=== PATIENT | female | born 1990 | race Caucasian/White ===

== ENCOUNTER 2020-11-01 18:06 | Inpatient (IN) | payer BC ==
[~2020-11-01] VITALS: Ht 160 cm; Wt 90.3 kg
[2020-11-01] MEDS ORDERED: morphine 4 MG/ML inj SYRINge IV PRN (18:40)
[2020-11-01] MEDS ORDERED: normal saline 1000ML IV soln IVB ONE (18:40)
[2020-11-01] MEDS ORDERED: ketorolac tromethamine 15mg/ml inj. IV ONE (18:40)
[2020-11-01] MEDS ORDERED: ondansetron/PF 4mg/2ml inj IV ONE (18:40)
[2020-11-01 19:27] LABS: BASOPHILS % (AUTO) 0.2 % (0-1); EOSINOPHILS % (AUTO) 0.1 % (0-6); HEMATOCRIT 38.8 % (35.0-45.0); HEMOGLOBIN 12.7 g/dl (12.0-16.0); LYMPHOCYTES # (AUTO) 1.2 X10'3 (1.1-4.8); MEAN CORPUSCULAR HEMOGLOBIN 25.7 PG (27.0-31.0); MEAN CORPUSCULAR HGB CONC 32.8 g/dL (33.0-36.5); MEAN CORPUSCULAR VOLUME 78.4 FL (78-98); MEAN PLATELET VOLUME 8.2 FL (7.4-10.4); MONOCYTES # (AUTO) 0.9 X10'3 (0-0.9); MONOCYTES % (AUTO) 5.5 % (2-12); NEUTROPHILS # (AUTO) 14.5 X10'3 (1.8-7.7); NEUTROPHILS % (AUTO) 87.2 % (42-75); PLATELET COUNT 392 X10'3 (140-440); RED BLOOD COUNT 4.95 X10'6 (4.20-5.60); WHITE BLOOD COUNT 16.6 X10'3 (4.5-11.0)
[2020-11-01 19:43] LABS: ALANINE AMINOTRANSFERASE 276 U/L (12-78); ALBUMIN/GLOBULIN RATIO 1.1 (1.1-1.5); ALKALINE PHOSPHATASE 119 IU/L (46-116); ANION GAP 14 (8-16); ASPARTATE AMINO TRANSFERASE 515 U/L (10-37); BILIRUBIN,TOTAL 0.7 MG/DL (0.1-1.0); BLOOD UREA NITROGEN 12 MG/DL (7-18); BUN/CREATININE RATIO 17.6 (6.6-38.0); CALCIUM 9.7 MG/DL (8.5-10.1); CHLORIDE 104 MMOL/L (99-107); CREATININE 0.68 MG/DL (0.40-0.90); GLUCOSE 124 MG/DL (70-104); LIPASE 179 U/L (73-393); POTASSIUM 3.4 MMOL/L (3.5-5.1); SODIUM 140 MMOL/L (135-145); TOTAL CARBON DIOXIDE 22.4 MMOL/L (24-32); TOTAL PROTEIN 7.5 G/DL (6.4-8.2); eGFR > 90 ML/MIN
[2020-11-01] MEDS ORDERED: fentaNYL/PF 50MCG/1 ML 2ML syringe IV ONE (20:20)
[2020-11-01] MEDS ORDERED: piperacillin/tazo 3.375gm/50ml 50 ML IV ONE (20:55)
[2020-11-01] MEDS ORDERED: LEVO88CA4 PO (21:16)
[2020-11-01] MEDS ORDERED: TOPI50TA24 PO (21:16)
[2020-11-01] MEDS ORDERED: PANT40TA54 PO (21:17)
[2020-11-01] MEDS ORDERED: ALB0.5UD IH (21:17)
[2020-11-01] MEDS: normal saline 1000ml 1,000 ML IV SCH (21:45)
[2020-11-01] MEDS ORDERED: HYDROmorphone inj. 0.5 MG/0.5 ML DISP.SYRIN IV PRN (21:45)
[2020-11-01] MEDS ORDERED: potassium Cl 40MEQ/1/2NS 520ml 520 ML IV PRN ×2 (21:45)
[2020-11-01 22:58] LABS: CLARITY,URINE CLOUDY (Clear); COLOR,URINE YELLOW (Yellow); GLUCOSE, URINE NEGATIVE (Neg); KETONES,URINE NEGATIVE (Neg); LEUKOCYTE ESTERASE ,URINE NEGATIVE (Neg); NITRITES, URINE NEGATIVE (Neg); OCCULT BLOOD,URINE NEGATIVE (Neg); PROTEIN,URINE 30 mg/dl (Neg); UROBILINOGEN,URINE 0.2 E.U/dL (0.2-1.0)
[2020-11-01 22:59] LABS: URINE HCG NEGATIVE (NEG)
[2020-11-01 23:28] LABS: UA COLLECTION TYPE CLN CATCH MIDSTREAM
[2020-11-01 23:37] LABS: BACTERIA,URINE NONE SEEN /HPF (Neg); RBC,URINE NONE SEEN /HPF (0-2); SQUAMOUS EPITHELIAL CELL,UR FEW /LPF (FEW); WBC,URINE 0-4 /HPF (0-4)
[2020-11-01 23:38] LABS: AMORPHOUS PHOSPHATES 4+
[2020-11-02] VITALS (11 sets, daily range): BP systolic 106–125; BP diastolic 64–85
[2020-11-02] MEDS: piperacillin/tazo 3.375gm/50ml 50 ML IV SCH ×4 (00:30→23:57)
--- NOTE | 2020-11-02 06:24 | NUR ---
Problems reprioritized. Patient report given, questions answered & plan of care reviewed with SOM. Addendum: 11/02/20 at 0624 by Davin Pruett RN Amended: Links added.
[2020-11-02 06:45] LABS: BASOPHILS % (AUTO) 0.3 % (0-1); EOSINOPHILS % (AUTO) 0.1 % (0-6); HEMATOCRIT 34.2 % (35.0-45.0); HEMOGLOBIN 11.1 g/dl (12.0-16.0); LYMPHOCYTES # (AUTO) 1.9 X10'3 (1.1-4.8); LYMPHOCYTES % (AUTO) 19.4 % (21-51); MEAN CORPUSCULAR HEMOGLOBIN 25.8 PG (27.0-31.0); MEAN CORPUSCULAR HGB CONC 32.6 g/dL (33.0-36.5); MEAN PLATELET VOLUME 8.4 FL (7.4-10.4); MONOCYTES # (AUTO) 0.9 X10'3 (0-0.9); MONOCYTES % (AUTO) 9.4 % (2-12); NEUTROPHILS # (AUTO) 6.8 X10'3 (1.8-7.7); NEUTROPHILS % (AUTO) 70.8 % (42-75); PLATELET COUNT 337 X10'3 (140-440); RED BLOOD COUNT 4.33 X10'6 (4.20-5.60); RED CELL DISTRIBUTION WIDTH 17.8 % (11.5-14.5); WHITE BLOOD COUNT 9.7 X10'3 (4.5-11.0)
[2020-11-02 07:03] LABS: ALANINE AMINOTRANSFERASE 872 U/L (12-78); ALBUMIN 2.9 G/DL (3.4-5.0); ALKALINE PHOSPHATASE 110 IU/L (46-116); ANION GAP 10 (8-16); ASPARTATE AMINO TRANSFERASE 870 U/L (10-37); BLOOD UREA NITROGEN 9 MG/DL (7-18); BUN/CREATININE RATIO 15.3 (6.6-38.0); CALCIUM 8.1 MG/DL (8.5-10.1); CHLORIDE 111 MMOL/L (99-107); CREATININE 0.59 MG/DL (0.40-0.90); GLUCOSE 92 MG/DL (70-104); POTASSIUM 3.7 MMOL/L (3.5-5.1); SODIUM 144 MMOL/L (135-145); TOTAL PROTEIN 5.8 G/DL (6.4-8.2); eGFR > 90 ML/MIN
[2020-11-02] MEDS: K and/or MAG REPLACEMENT MC SCH ×2 (08:00→20:00)
[2020-11-02] MEDS ORDERED: levoFLOXACIN-Levaquin 500mg/D5 100 ML IV ONE (08:20)
[2020-11-02] MEDS ORDERED: MIDAZolam 1 MG/ML 5ML VIAL ONE (08:20)
[2020-11-02] MEDS ORDERED: fentaNYL/PF 50MCG/1 ML 2ML syringe ONE (08:20)
[2020-11-02] MEDS ORDERED: iohexol 300 MG/1 ML 50ml polymer ONE (08:21)
[2020-11-02] MEDS ORDERED: LIDOcaine Viscous 15ml cup ONE (08:21)
[2020-11-02] MEDS ORDERED: glucagon, human recombinant 1mg kit ONE (08:21)
[2020-11-02] MEDS: normal saline 1000ml 1,000 ML IV SCH ×3 (13:06→23:18)
[2020-11-02] MEDS ORDERED: morphine 2 MG/ML inj. syringe IV PRN (13:40)
--- NOTE | 2020-11-02 13:42 | NUR ---
Dr. Jamil was at bedside talked to the patient and .
--- NOTE | 2020-11-02 13:47 | NUR ---
Dr. Jamil called Dr. Rooney on the phone regarding this patient. Per Dr. Omero Rooney will do the surgery tomorrow and that patient will need to be NPO after midnight. Charge nurse Hellen flowers
[2020-11-02] MEDS: pantoprazole 40 MG vial IV SCH (13:51)
[2020-11-02] MEDS: ondansetron/PF 4mg/2ml inj IV PRN ×2 (13:53→20:21)
--- NOTE | 2020-11-02 15:01 | NUR ---
Paged Dr. Jamil PAGER ID: [phone] MESSAGE: Surgical Mckenzie FORD ext [phone]. RE: Viola Mejia. Patient still in pain 10/07 , Dilaudid was given <2hrs ago and Morphine 66 minutes ago as of this time. Do you want her to be on Toradol too?
--- NOTE | 2020-11-02 16:15 | NUR ---
Paged Dr. Jamil PAGER ID: [phone] MESSAGE: Surgical Mckenzie FORD ext [phone]. RE Viola Mejia. Follow up page. Patient is crying in abdominal pain now, the Dilaudid or Morphine not due yet. Can I give her an earlier dose of Dilaudid? Please call
[2020-11-02] MEDS ORDERED: HYDROmorphone inj. 0.5 MG/0.5 ML DISP.SYRIN IV ONE (16:20)
[2020-11-02] MEDS ORDERED: HYDROmorphone inj. 0.5 MG/0.5 ML DISP.SYRIN IV PRN (16:20)
--- NOTE | 2020-11-02 16:58 | NUR ---
Patient still not getting relief of pain despite of Dilaudid 0.5mg extra dose that I gave. She was still in excruciating pain on her abdomen, she was asking if she can get surgery today instead of tomorrow. I called Dr. Rooney to discuss this with him - the uncontrolled pain and patient's request to schedule the surgery tonight instead of tomorrow. Dr. Rooney said he could not do it tonight as he has 4 m,ore cases to do at [facility]. He gave me order to start patient on Dilaudid CADD on standard setting for pain management
[2020-11-02] MEDS ORDERED: CADD PCA waste documentation MC PRN (17:00)
[2020-11-02] MEDS ORDERED: naloxone 0.4 mg/ml inj IV PRN ×2 (17:00→23:10)
[2020-11-02] MEDS: HYDROmorph./NS 0.2 mg/ml CADD 100 ML IV SCH ×3 (17:19→21:00)
--- NOTE | 2020-11-02 17:25 | NUR ---
Paged Dr. Jamil PAGER ID: [phone] MESSAGE: Surgical Mckenzie RN ext [phone]. RE: Jackie, Page. Can I get order for Ativan IV for her please? She is crying still jn pain even with Dilaudid. Dr. Rooney gave us order for Dilaudid CADD. She is panicking
[2020-11-02] MEDS ORDERED: LORazepam 2 mg/ml vial IV PRN (17:45)
[2020-11-02] MEDS ORDERED: LORazepam 2 mg/ml vial IV ONE (17:45)
--- NOTE | 2020-11-02 18:06 | NUR ---
Ativan 0.5mg IV given as indicated for anxiety.
--- NOTE | 2020-11-02 18:26 | NUR ---
Patient looks calmer at this time after the Ativan was given. Report given to True FORD already
[2020-11-02] MEDS: lactobacillus rhamnosus 10,000 MMU CELLS/CAPSULE PO SCH (20:00)
[2020-11-02] MEDS ORDERED: proCHLORperazine 10 MG/2 ml inj IV PRN (23:15)
[2020-11-03] VITALS: BP 124/78
[2020-11-03] MEDS: morphine/NS 1 mg/ml 50ml CADD 50 ML IV SCH ×10 (00:38→23:50)
[2020-11-03 07:00] VITALS: BP 120/62
--- NOTE | 2020-11-03 07:01 | NUR ---
Problems reprioritized. Patient report given, questions answered & plan of care reviewed with SOM. Addendum: 11/03/20 at 0701 by Davin Pruett RN Amended: Links added.
[2020-11-03 07:35] LABS: BASOPHILS % (AUTO) 0.1 % (0-1); EOSINOPHILS % (AUTO) 0 % (0-6); HEMATOCRIT 36.6 % (35.0-45.0); HEMOGLOBIN 11.8 g/dl (12.0-16.0); LYMPHOCYTES # (AUTO) 0.7 X10'3 (1.1-4.8); LYMPHOCYTES % (AUTO) 4.8 % (21-51); MEAN CORPUSCULAR HEMOGLOBIN 25.9 PG (27.0-31.0); MEAN CORPUSCULAR HGB CONC 32.2 g/dL (33.0-36.5); MEAN CORPUSCULAR VOLUME 80.5 FL (78-98); MEAN PLATELET VOLUME 8.9 FL (7.4-10.4); MONOCYTES # (AUTO) 0.9 X10'3 (0-0.9); MONOCYTES % (AUTO) 6.1 % (2-12); PLATELET COUNT 306 X10'3 (140-440); RED BLOOD COUNT 4.55 X10'6 (4.20-5.60); RED CELL DISTRIBUTION WIDTH 18.5 % (11.5-14.5); WHITE BLOOD COUNT 14.6 X10'3 (4.5-11.0)
[2020-11-03 07:58] LABS: ALANINE AMINOTRANSFERASE 531 U/L (12-78); ALKALINE PHOSPHATASE 97 IU/L (46-116); ANION GAP 14 (8-16); ASPARTATE AMINO TRANSFERASE 187 U/L (10-37); BILIRUBIN,TOTAL 0.5 MG/DL (0.1-1.0); BLOOD UREA NITROGEN 5 MG/DL (7-18); BUN/CREATININE RATIO 8.9 (6.6-38.0); CALCIUM 8.1 MG/DL (8.5-10.1); CHLORIDE 107 MMOL/L (99-107); CREATININE 0.56 MG/DL (0.40-0.90); GLUCOSE 115 MG/DL (70-104); POTASSIUM 3.7 MMOL/L (3.5-5.1); SODIUM 142 MMOL/L (135-145); TOTAL CARBON DIOXIDE 20.9 MMOL/L (24-32); TOTAL PROTEIN 6.1 G/DL (6.4-8.2); eGFR > 90 ML/MIN
[2020-11-03] MEDS: lactobacillus rhamnosus 10,000 MMU CELLS/CAPSULE PO SCH ×2 (08:00→19:32)
[2020-11-03] MEDS: K and/or MAG REPLACEMENT MC SCH ×2 (08:00→20:00)
[2020-11-03 08:11] VITALS: BP 120/62
[2020-11-03] MEDS: pantoprazole 40 MG vial IV SCH (08:52)
[2020-11-03] MEDS: piperacillin/tazo 3.375gm/50ml 50 ML IV SCH ×3 (08:52→23:37)
[2020-11-03] MEDS: normal saline 1000ml 1,000 ML IV SCH ×2 (08:54→15:48)
[2020-11-03] MEDS: ondansetron/PF 4mg/2ml inj IV PRN (08:54)
[2020-11-03 09:21] LABS: LIPASE 8739 U/L (73-393)
--- NOTE | 2020-11-03 10:25 | NUR ---
I spoke to pharmacist Paulo Mckeon over the phone asking him to help me as Dr. Jamil wanted me to contact pharmacist for continuous rate dosing. Per Dr. Jamil, he wanted 0.5mg/hr of Morphine CADD setting. Pharmacist assisted me with putting the order. Continuous rate was set to 0.5mg/hr, 0 bolus, no lockout.
[2020-11-03] MEDS: CADD PCA waste documentation MC PRN (11:44)
[2020-11-03] MEDS ORDERED: ketorolac trometh. 30mg/ml inj. IV ONE (11:45)
[2020-11-03 12:00] VITALS: BP 120/66
[2020-11-03] MEDS ORDERED: famotidine/PF 10 mg/ml inj IV ONE (12:30)
--- NOTE | 2020-11-03 13:40 | NUR ---
Patient was seen by Dr. Rooney. Per patient, Dr. Rooney told her that he cannot do the surgery today due to very high lipase level. She said that the doctor had told her that we will have to see if the lipase level comes down tomorrow
[2020-11-03] MEDS ORDERED: albuterol 2.5 MG/3 ML nebule NEB PRN (15:35)
[2020-11-03 18:00] VITALS: BP 125/54
--- NOTE | 2020-11-03 18:25 | NUR ---
Problems reprioritized. Patient report given, questions answered & plan of care reviewed with Nicho FORD.
--- NOTE | 2020-11-03 18:56 | NUR ---
I have received report from LILIANA Rincon and had the opportunity to ask questions and assume patient care.
[2020-11-03] MEDS: ibuprofen tablet 400 MG TABLET PO PRN (23:27)
[2020-11-04] VITALS: BP 115/55
[2020-11-04] MEDS: morphine/NS 1 mg/ml 50ml CADD 50 ML IV SCH ×6 (03:00→13:00)
[2020-11-04] MEDS: normal saline 1000ml 1,000 ML IV SCH ×4 (03:05→20:31)
--- NOTE | 2020-11-04 06:08 | NUR ---
I have received report from LILIANA Rincon and had the opportunity to ask questions and assume patient care.
[2020-11-04 07:16] LABS: BASOPHILS # (AUTO) 0.1 X10'3 (0-0.2); BASOPHILS % (AUTO) 0.3 % (0-1); EOSINOPHILS % (AUTO) 0.1 % (0-6); HEMATOCRIT 37.8 % (35.0-45.0); HEMOGLOBIN 12.2 g/dl (12.0-16.0); LYMPHOCYTES # (AUTO) 0.9 X10'3 (1.1-4.8); LYMPHOCYTES % (AUTO) 4.9 % (21-51); MEAN CORPUSCULAR HEMOGLOBIN 25.7 PG (27.0-31.0); MEAN CORPUSCULAR HGB CONC 32.2 g/dL (33.0-36.5); MEAN CORPUSCULAR VOLUME 79.8 FL (78-98); MEAN PLATELET VOLUME 8.2 FL (7.4-10.4); MONOCYTES # (AUTO) 1.2 X10'3 (0-0.9); MONOCYTES % (AUTO) 6.5 % (2-12); NEUTROPHILS # (AUTO) 16.9 X10'3 (1.8-7.7); NEUTROPHILS % (AUTO) 88.2 % (42-75); PLATELET COUNT 294 X10'3 (140-440); RED BLOOD COUNT 4.74 X10'6 (4.20-5.60); RED CELL DISTRIBUTION WIDTH 18.8 % (11.5-14.5); WHITE BLOOD COUNT 19.1 X10'3 (4.5-11.0)
[2020-11-04] MEDS: piperacillin/tazo 3.375gm/50ml 50 ML IV SCH ×3 (07:18→23:48)
[2020-11-04] MEDS: topiramate 25mg tablet PO SCH (07:18)
[2020-11-04] MEDS: levoTHYROXINE 88mcg tablet PO SCH (07:19)
[2020-11-04] MEDS: lactobacillus rhamnosus 10,000 MMU CELLS/CAPSULE PO SCH ×2 (07:19→19:21)
[2020-11-04] MEDS: ibuprofen tablet 400 MG TABLET PO PRN (07:22)
[2020-11-04] MEDS: pantoprazole 40 MG vial IV SCH (07:25)
[2020-11-04 07:41] LABS: ALANINE AMINOTRANSFERASE 335 U/L (12-78); ALBUMIN 2.9 G/DL (3.4-5.0); ALBUMIN/GLOBULIN RATIO 0.9 (1.1-1.5); ALKALINE PHOSPHATASE 90 IU/L (46-116); ANION GAP 12 (8-16); ASPARTATE AMINO TRANSFERASE 64 U/L (10-37); BILIRUBIN,TOTAL 1.2 MG/DL (0.1-1.0); BLOOD UREA NITROGEN 3 MG/DL (7-18); BUN/CREATININE RATIO 5.4 (6.6-38.0); CALCIUM 8.1 MG/DL (8.5-10.1); CHLORIDE 106 MMOL/L (99-107); CREATININE 0.56 MG/DL (0.40-0.90); GLUCOSE 77 MG/DL (70-104); POTASSIUM 3.1 MMOL/L (3.5-5.1); SODIUM 141 MMOL/L (135-145); TOTAL CARBON DIOXIDE 23.4 MMOL/L (24-32); TOTAL PROTEIN 6.3 G/DL (6.4-8.2); eGFR > 90 ML/MIN
[2020-11-04 08:15] LABS: LIPASE 3900 U/L (73-393)
[2020-11-04] MEDS: K and/or MAG REPLACEMENT MC SCH ×2 (08:25→20:00)
[2020-11-04 11:00] VITALS: BP 116/68
[2020-11-04] MEDS: HYDROcodone/acetaminophen 10/325mg tab PO PRN ×2 (13:11→19:22)
[2020-11-04] MEDS ORDERED: CADD PCA waste documentation MC PRN (13:45)
[2020-11-04] MEDS: CADD PCA waste documentation MC PRN (13:45)
--- NOTE | 2020-11-04 18:38 | NUR ---
Report given to Yanely RN, pt tolerating PO pain meds well at this time. Next dose after 1900. Yanely will monitor.
--- NOTE | 2020-11-04 18:57 | NUR ---
Patient in room [facility]. I have received report from LILIANA Brown and had the opportunity to ask questions and assume patient care.
[2020-11-04 19:00] VITALS: BP 100/53
[2020-11-04] MEDS: morphine 4 MG/ML inj SYRINge IV PRN (21:58)
[2020-11-05] VITALS: BP 108/57
[2020-11-05] MEDS: normal saline 1000ml 1,000 ML IV SCH ×2 (02:43→09:11)
[2020-11-05] MEDS: HYDROcodone/acetaminophen 10/325mg tab PO PRN ×2 (04:23→10:24)
[2020-11-05 06:09] LABS: BASOPHILS % (AUTO) 0.2 % (0-1); EOSINOPHILS # (AUTO) 0.2 X10'3 (0-0.9); EOSINOPHILS % (AUTO) 1.6 % (0-6); HEMATOCRIT 32.7 % (35.0-45.0); HEMOGLOBIN 10.4 g/dl (12.0-16.0); LYMPHOCYTES % (AUTO) 6.2 % (21-51); MEAN CORPUSCULAR HEMOGLOBIN 25.7 PG (27.0-31.0); MEAN CORPUSCULAR HGB CONC 31.8 g/dL (33.0-36.5); MEAN CORPUSCULAR VOLUME 80.9 FL (78-98); MEAN PLATELET VOLUME 8.1 FL (7.4-10.4); MONOCYTES # (AUTO) 1.2 X10'3 (0-0.9); MONOCYTES % (AUTO) 7.7 % (2-12); NEUTROPHILS % (AUTO) 84.3 % (42-75); PLATELET COUNT 294 X10'3 (140-440); RED BLOOD COUNT 4.03 X10'6 (4.20-5.60); RED CELL DISTRIBUTION WIDTH 18.1 % (11.5-14.5); WHITE BLOOD COUNT 15.4 X10'3 (4.5-11.0)
--- NOTE | 2020-11-05 06:24 | NUR ---
Problems reprioritized. Patient report given, questions answered & plan of care reviewed with LILIANA Rincon.
[2020-11-05 06:34] LABS: ALANINE AMINOTRANSFERASE 193 U/L (12-78); ALBUMIN 2.3 G/DL (3.4-5.0); ALBUMIN/GLOBULIN RATIO 0.7 (1.1-1.5); ALKALINE PHOSPHATASE 84 IU/L (46-116); ANION GAP 10 (8-16); ASPARTATE AMINO TRANSFERASE 28 U/L (10-37); BILIRUBIN,TOTAL 1.5 MG/DL (0.1-1.0); BLOOD UREA NITROGEN 2 MG/DL (7-18); BUN/CREATININE RATIO 3.6 (6.6-38.0); CALCIUM 8.1 MG/DL (8.5-10.1); CHLORIDE 108 MMOL/L (99-107); CREATININE 0.56 MG/DL (0.40-0.90); GLUCOSE 94 MG/DL (70-104); POTASSIUM 3.3 MMOL/L (3.5-5.1); SODIUM 143 MMOL/L (135-145); TOTAL CARBON DIOXIDE 25.4 MMOL/L (24-32); TOTAL PROTEIN 5.6 G/DL (6.4-8.2); eGFR > 90 ML/MIN
[2020-11-05 08:00] VITALS: BP 117/74
[2020-11-05 08:20] LABS: LIPASE 1137 U/L (73-393)
[2020-11-05] MEDS: pantoprazole 40 MG vial IV SCH (08:24)
[2020-11-05] MEDS: morphine 4 MG/ML inj SYRINge IV PRN (08:24)
[2020-11-05] MEDS: levoTHYROXINE 88mcg tablet PO SCH (08:29)
[2020-11-05] MEDS: lactobacillus rhamnosus 10,000 MMU CELLS/CAPSULE PO SCH (08:31)
[2020-11-05] MEDS: topiramate 25mg tablet PO SCH (08:32)
[2020-11-05] MEDS: piperacillin/tazo 3.375gm/50ml 50 ML IV SCH (09:08)
--- NOTE | 2020-11-05 10:30 | NUR ---
Paged Dr. Negro PAGER ID: [phone] MESSAGE: Katerin Rincon RN ext [phone]. RE: Viola Mejia. Patient wants to go home today, she has to come back to [place] tomorrow. Her lipase today is 1137, tolerating the clear liquid.
[2020-11-05] MEDS ORDERED: METR-159 PO (10:57)
[2020-11-05] MEDS ORDERED: HYDR-3965 PO (10:57)
[2020-11-05] MEDS ORDERED: CIPR-259 PO (10:57)
[2020-11-05 11:00] VITALS: BP 118/69
--- NOTE | 2020-11-05 12:28 | NUR ---
I called [facility] [place] to let the pharmacy know that patient has duplicate rx for [place] from 2 different doctors here. Patient preferred Rx go to [facility]. The prescription wrote by Dr. Negro went to [facility] in [place]. The pharmacy clinical specialist said she will send a form to the [facility] pharmacy in [place] to have the prescription for Metronidazole and Ciprofloxacin transfer over to [facility] in [place].
--- NOTE | 2020-11-05 12:34 | NUR ---
I called [facility] pharmacy in [place] about the issue of two [place] prescription went to them and to [facility] in [place], the tech was looking up at their record, she said that she cannot find any prescription sent over to them for this patient. She said that if she see it she will cancel the prescription for [place]
--- NOTE | 2020-11-05 13:20 | NUR ---
I called [facility] in [place], I called in the prescription for Cipro and Flagyl. The pharmacy cashier I spoke to said they still have the RX for [place]. I was asked to have the patient call the pharmacy for insurance information so they can fill the prescriptions.
--- NOTE | 2020-11-05 13:40 | NUR ---
Discharged patient home, discharge instructions given to patient. Patient verbalized understanding of all instructions given. Instructed patient to ensure she has all her belongings with her before leaving the hospital. New prescription antibiotics were called in, narcotic prescription were called in by Dr. Rooney. Peripheral IV catheter removed, tip intact.
== END 2020-11-05 13:43 | disposition home or self-care (01) | DRG 444 ==
LOC: ER 18:07 → ED HOLD 21:42 → SUR 3N 11-02 00:34
PROVIDERS: ADMIT Internal Medicine; ATTEND Family Medicine
PROC: 0F798ZZ Dilation of Common Bile Duct, Via Natural or Artificial Opening Endoscopic (ICD-10-PCS; principal; 2020-11-02)
DX: K80.70 Calculus of gallbladder and bile duct without cholecystitis without obstruction (principal); K85.90 Acute pancreatitis without necrosis or infection, unspecified; J45.909 Unspecified asthma, uncomplicated; E87.6 Hypokalemia; K21.9 Gastro-esophageal reflux disease without esophagitis; R79.89 Other specified abnormal findings of blood chemistry; Z87.442 Personal history of urinary calculi; Z98.891 History of uterine scar from previous surgery; Z98.51 Tubal ligation status; Z88.2 Allergy status to sulfonamides; Z79.899 Other long term (current) drug therapy
CPT/HCPCS: 36415; 43262; 43264; 76700; 80053; 81001; 81025; 83605; 83690; 84145; 85025; 87040; 87081; 93005; 96365; 96375; 99152; 99153; 99285; A4620; C1769; C9113; G0378; J0780; J1170; J1610; J1885; J1956; J2060; J2250; J2270; J2405; J2543; J3010; J3480; J3490; J7030; J7040; Q9967